=== PATIENT | female | born 1960 | race Caucasian/White ===

== ENCOUNTER 2018-01-04 07:47 | Day surgery (SDC) | payer OTHER ==
[~2018-01-04 07:47] MED LIST: LIDOCAINE 2% (SDV) 5 ML INJ
[2018-01-04] MEDS ORDERED: CLINDAMYCIN 600 MG/D5W (PMX) 50 ML IVPB (08:30)
[2018-01-04] MEDS ORDERED: SOD CHLORIDE 0.9% 1,000 ML IV (09:00)
[2018-01-04] MEDS ORDERED: FENTAnyl 50 MCG/ML VIAL (14:08)
[2018-01-04] MEDS ORDERED: MEPERIDINE 25 MG INJ IV (14:30)
[2018-01-04] MEDS ORDERED: HYDROmorphONE (0.2 MG/ML) 10ML SYG IV ×2 (14:30)
[2018-01-04] MEDS ORDERED: FENTAnyl 50 MCG/ML VIAL IV ×2 (14:30)
[2018-01-04] MEDS ORDERED: METOCLOPRAMIDE 10 MG INJ IV (14:30)
[2018-01-04] MEDS ORDERED: DIPHENHYDRAMINE 50 MG INJ IV (14:30)
[2018-01-04] MEDS ORDERED: SUCCINYLCHOLINE CHLORIDE 100 MG/5 ML SYG IV (14:33)
[2018-01-04] MEDS ORDERED: SUGAMMADEX SODIUM 200 MG/2 ML VIAL IV (14:33)
[2018-01-04] MEDS ORDERED: CLINDAMYCIN 900 MG/D5W (PMX) 50 ML IVPB (14:33)
[2018-01-04] MEDS: BUPIVACAINE 0.25% (MPF) 30 ML INJ (14:33)
[2018-01-04] MEDS ORDERED: ROCURONIUM 50 MG INJ (14:33)
[2018-01-04] MEDS ORDERED: PROPOFOL 20 ML (14:33)
[2018-01-04] MEDS ORDERED: HYDROCODONE/APAP (5/325) TAB PO (15:00)
[2018-01-04] MEDS: ONDANSETRON 4 MG INJ IV (15:05)
[2018-01-04] MEDS: HYDROmorphONE (0.2 MG/ML) 10ML SYG IV ×2 (15:05→15:13)
== END 2018-01-04 16:30 | disposition home or self-care (01) ==
LOC: SDS 07:47
DX: N60.12 Diffuse cystic mastopathy of left breast (principal); I10 Essential (primary) hypertension
CPT/HCPCS: 19301; 88307